=== PATIENT | female | born 1990 | race Caucasian/White ===

== ENCOUNTER → 2023-08-31 12:02 | Outpatient (REF) | payer OTHER, SELFPAY | LOC: WOUND 12:02 | PROVIDERS: ATTENDING PHYSICIAN Surgery Plastic and Reconstructive Surgery; REFERRING PHYSICIAN Nurse Practitioner Adult Health | DX: L02.213 Cutaneous abscess of chest wall (principal); N61.1 Abscess of the breast and nipple | CPT/HCPCS: 99203 ==

== ENCOUNTER 2024-04-25 13:37 | Emergency (ER) | payer BC, SELFPAY ==
[2024-04-25 14:03] VITALS: BP 145/89
[2024-04-25 14:17] LABS: % Basophils 0.4 % (0-2); % Eosinophils 1.1 % (0-6); % Immature Granulocytes 0.4 % (0-0.5); % Lymphocytes 26.6 % (20.5-51.1); % Monocytes 10.8 % (1.7-9.3); % Neutrophils 60.7 % (42.2-75.2); Absolute Eosinophils 0.1 10^3/uL (0-0.7); Absolute Monocytes 0.8 10^3/uL (0.1-0.6); Absolute Neutrophils 4.5 10^3/uL (1.4-6.5); Hematocrit 40.4 % (37.0-47.0); Hemoglobin 13.7 g/dL (12.0-16.0); Mean Corp Hgb Conc. 33.9 g/dL (33.0-37.0); Mean Corpuscular Hgb 31.2 pg (27.0-31.0); Mean Platelet Volume 8.8 fL (7.4-10.4); Nucleated Red Blood Cells % 0 %; Platelet Count 293 10^3/uL (130-400); Red Blood Cell Count 4.39 10^6/uL (4.20-5.40); Red Cell Dist. Width 14.2 % (11.5-14.5); White Blood Cell Count 7.4 10^3/uL (4.8-10.8)
[2024-04-25 14:36] LABS: HCG, Serum Qualitative Screen Negative
[2024-04-25 14:40] LABS: ALT (SGPT) 91 U/L (0-35); AST (SGOT) 63 U/L (14-36); Albumin 4.2 g/dl (3.5-5.0); Alkaline Phosphatase 119 U/L (38-126); Blood Urea Nitrogen 14 mg/dl (7-17); Calcium 9.6 mg/dl (8.4-10.2); Carbon Dioxide 28 mmol/L (22-30); Chloride 106 mmol/L (98-107); Glucose 102 mg/dl (70-99); Potassium 4.4 mmol/L (3.5-5.1); Sodium 137 mmol/L (135-145); Total Bilirubin 0.7 mg/dl (0.2-1.3); Total Protein 7.3 g/dl (6.3-8.2); eGFR > 60.00
[2024-04-25] MEDS: XANAX 0.25 MG PO (16:48)
--- NOTE | 2024-04-25 17:26 | ED.GENMED ---
History of Present Illness
General
Chief Complaint: Breast Problem
Time Seen by Provider: 04/25/24 16:31
History of Present Illness
History of Present Illness:
Patient is a 34-year-old woman with prior breast infection presenting to the emergency department with concerns for an infection. Patient states that in August she was admitted here for breast infection that spread to the sternum. Per chart
review she did have a incision and drainage by breast surgery team and was on IV antibiotics. She states that it was healing well up until a few days ago. She had worsening drainage. She has some chills. She also had some blood and purulent
drainage. Her entire left breast is sore. She does not feel any crepitus. No nausea or vomiting. No diarrhea. This does seem similar to the prior infection.
Past History
Past History
ED Past Medical History: Asthma and Other (Hypoglycemia, ovarian cysts, endometriosis previous laparotomy, Sciatic pain, Migraines when she was in [employer].); Negative HTN, Hypercholesterolemia or NIDDM
ED Past Surgical History: Gynecological (Ovarian cyst)
Social History
Tobacco: Former smoker
Alcohol: None
Personal: Single
Living: with family
Employment: Employed
Family History
Family History: Negative Diabetes, Hypertension or CAD
Phy Exam
Physical Exam
Physical Exam:
GENERAL: in no acute distress
HEENT: normocephalic, extraocular movements intact, moist oral mucosa
NECK: normal inspection
Chest: Chaperoned by BALJEET Ohara, left breast tender diffusely, small area of open ulceration underneath areola where a prior scar was that does have some purulent drainage. No crepitus.
RESPIRATORY: no respiratory distress, clear to auscultation bilaterally
CARDIOVASCULAR: regular rate and rhythm
ABDOMEN/: soft, non-distended, non-tender to palpation, no rebound or guarding
EXTREMITIES: non-tender, no edema/swelling
NEUROLOGIC: awake and alert, moves all extremities
SKIN: warm
Course
Orders/Labs/Results
Orders:
Orders
04/25/24 14:06
Test Result ONCE
04/25/24 14:11
Complete Blood Count/With Diff Urgent
Comprehensive Metabolic Panel Urgent
HCG, Serum Qualitative Screen Urgent
04/25/24 16:42
CT Chest With Iv Contrast Urgent
Comment:
Reason For Exam: left breast infection
Alprazolam [Xanax] 0.25 mg PO NOW STA
04/25/24 19:26
HydrOXYZINE [Atarax] 25 mg PO NOW STA
Ketorolac [Toradol] 15 mg IV NOW STA
Abnormal Lab Results
04/25/24
14:11
MCH 31.2 H pg
(27.0-31.0)
Absolute Monos (auto) 0.8 H 10^3/uL
(0.1-0.6)
Monocytes % 10.8 H %
(1.7-9.3)
Glucose 102 H mg/dl
(70-99)
AST 63 H U/L
(14-36)
ALT 91 H U/L
(0-35)
04/25/24 14:11
04/25/24 14:11
Vital Signs
Initial and Last Documented VS:
Initial Vital Signs
Temp Pulse Resp BP Pulse Ox
98.8 F 87 118 145/89 98
04/25/24 14:03 04/25/24 14:03 04/25/24 14:03 04/25/24 14:03 04/25/24 14:03
Last Documented Vital Signs
Temp Pulse Resp BP Pulse Ox
98.8 F 87 118 145/89 98
04/25/24 14:03 04/25/24 14:03 04/25/24 14:03 04/25/24 14:03 04/25/24 14:03
MDM/Problems Addressed
Differential Diagnosis Includes:
Patient is a 34-year-old woman presenting to the emergency department concern for breast infection. Vitals here are unremarkable and exam does show a tender swollen erythematous left breast with ulcerative lesion that is draining. Concern for
cellulitis versus deeper abscess. Less likely to be necrotizing soft tissue infection will check blood work and obtain CT scan.
*Critical Care Note
Total Time (30-74mins, 75-104mins- exclusive of procedures): Not Applicable
Update Note
Update Note:
Blood work notable for normal white count. CT scan without signs of deeper infection. Given given the erythema the drainage and the tenderness we will start patient on antibiotics. She does state that she started Augmentin for her PCP today.
Will add clindamycin for MRSA coverage. She states that she was allergic to doxycycline and Bactrim. Patient is aware to lindsay the edges of the infection as if it spreading to come back to the emergency department. Strict return precautions given.
Patient stable for discharge.
ED Attending Note
-
Portions of this chart may have been created with voice recognition software.� Occasional wrong word or��sound alike� substitutions may have occurred due to the inherent limitations of voice recognition software.
Discharge Plan
Departure
Patient Disposition: Home (Routine Discharge)
Date of Disposition: 04/25/24
Time of Disposition: 19:44
Patient with high blood pressure during this ER visit?: No
Discharge Problem:
Cellulitis of chest wall
Instructions: Cellulitis (Skin Infection), Adult (DC)
Prescriptions:
New
clindamycin HCl 150 mg capsule
450 mg PO TID 7 Days Qty: 63 0RF
No Action
famotidine 40 mg Tablet
40 mg PO DAILY
omeprazole 40 mg Capsule,Delayed Release(Dr/Ec)
40 mg PO DAILY
alprazolam 0.25 mg Tablet
0.25 mg PO DAILYPRN PRN (Reason: anxiety)
Patient Comments:
04/25/24: last filled 03/30/24 for 30 tablets over 30 days
amoxicillin-pot clavulanate 875-125 mg tablet
1 tab PO Q12H 7 Days Qty: 14 0RF
Patient Comments:
04/25/24: started 04/25/24, to take 20 tablets over 10 days.
naproxen sodium [Aleve] 220 mg Tablet
440 mg PO BIDPRN PRN (Reason: mild pain)
trazodone 50 mg tablet
50 mg PO HSPRN PRN (Reason: sleep)
Referrals:
Aneesh Koch CRNP [Family Provider] -
Interventions
Interventions:
ED-Skin Assessment Last Done: 04/25/24 17:20
Discharge Date and Time
Print Language: URDU
[2024-04-25] MEDS: ATARAX 25 MG PO (19:32)
[2024-04-25] MEDS: TORADOL 15 MG IV (19:32)
[2024-04-25 19:59] VITALS: BP 138/85
== END 2024-04-25 20:00 | disposition home or self-care (01) ==
LOC: EMR 13:37
PROVIDERS: Emergency Medicine; EMERGENCY PHYSICIAN Student in an Organized Health Care Education/Training Program; FAMILY PHYSICIAN Nurse Practitioner Adult Health
DX: L03.313 Cellulitis of chest wall (principal); Z87.891 Personal history of nicotine dependence
CPT/HCPCS: 99285; 96374; 71260; 80053; 84703; 85025; Q9967

== ENCOUNTER 2025-03-26 21:12 | Inpatient (IN) | payer BC, SELFPAY ==
[2025-03-26 15:55] VITALS: BP 148/105
[2025-03-26 16:12] LABS: Hematocrit 42.9 % (37.0-47.0); Hemoglobin 14.1 g/dL (12.0-16.0); Mean Corp Hgb Conc. 32.9 g/dL (33.0-37.0); Mean Corpuscular Volume 93.9 fL (81.0-99.0); Nucleated Red Blood Cells % 0 %; Platelet Count 326 10^3/uL (130-400); Red Cell Dist. Width 13.9 % (11.5-14.5)
[2025-03-26 16:39] LABS: HCG, Serum Qualitative Screen Negative
[2025-03-26 16:41] LABS: ALT (SGPT) 81 U/L (0-35); AST (SGOT) 48 U/L (14-36); Albumin 4.3 g/dl (3.5-5.0); Alkaline Phosphatase 116 U/L (38-126); Blood Urea Nitrogen 9 mg/dl (7-17); Calcium 9.3 mg/dl (8.4-10.2); Carbon Dioxide 22 mmol/L (22-30); Chloride 109 mmol/L (98-107); Glucose 104 mg/dl (70-99); Potassium 3.9 mmol/L (3.5-5.1); Sodium 139 mmol/L (135-145); Total Protein 7.7 g/dl (6.3-8.2); eGFR > 60.00
[2025-03-26 18:14] VITALS: BP 142/95
[2025-03-26] MEDS: ATIVAN 0.5 MG PO (18:55)
[2025-03-26] MEDS: TORADOL 15 MG IV (18:57)
[2025-03-26 19:03] VITALS: BMI 51.2
--- NOTE | 2025-03-26 19:04 | ED.GENMED ---
History of Present Illness
General
Chief Complaint: Breast Problem
Source: patient
Exam Limitations: none
Time Seen by Provider: 03/26/25 18:33
Nursing documentation reviewed up to this point in time: agreed with
History of Present Illness
History of Present Illness:
34 yo female with hx of GERD, anxiety breast I&D, sternum I&D, reports the presence of cysts medial lower right breast which she first noticed on 2 days ago. Later that day noted 'cyst' on same breast, right side. The medial cyst has started
draining clear fluid, the right side breast cyst has become more painful, open, draining with redness surrounding. The patient experienced fever past two days, fluctuated between 99�F to 101�F. She reported feeling light-headed, 'nauseous,' and
described the wound as feeling 'hot.' No vomiting.
Past History
Past History
ED Past Medical History: Asthma, Other (Hypoglycemia, ovarian cysts, endometriosis previous laparotomy, Sciatic pain, Migraines when she was in [employer].) and Other (Hydradrenitis suppurtiva bilateral breasts); Negative HTN, Hypercholesterolemia
or NIDDM
ED Past Surgical History: Gynecological (Ovarian cyst)
Social History
Tobacco: Former smoker
Alcohol: None
Personal: Single
Living: with family
Employment: Employed
Family History
Family History: Negative Diabetes, Hypertension or CAD
Review of Systems
Review of Systems
Allergies reviewed?: Yes
All Other Systems: ROS reviewed and negative except as documented in HPI and ROS
Constitutional: Reports fever
ABD/GI: Denies nausea
Skin: Reports other (wound, pain, redness right breast)
Phy Exam
Physical Exam
Physical Exam:
GENERAL: No acute distress. A&Ox3.
CONSTITUTIONAL: Afebrile.
EYES: clear, conjunctivae normal
ENMT: moist mucus membranes, Pharynx nl
RESPIRATORY: Regular respirations, nonlabored, lungs clear.
CARDIOVASCULAR: Regular rate and rhythm, no murmurs, no rubs.
GI: Soft, nontender, normal BS
MUSCULOSKELETAL: Moves with ease. Well perfused.
SKIN: Warm, dry, pink. Hydradrenitis supuritiva both breasts, medial aspect R lower breast cyst has started draining clear fluid, the right lateral breast cyst has become more painful, open, about dime sized open wound draining with surrounding
cellulitis.
PSYCH: Normal mood and affect. Well kept, interactive and appropriate
NEUROLOGIC: Awake, alert and oriented. No focal neurological deficits
Course
Orders/Labs/Results
Orders:
Orders
03/26/25 Breakfast
Regular
At Your Request: Full Participation
Does patient need a safe tray?: No
03/26/25 15:57
Test Result ONCE
03/26/25 16:06
Complete Blood Count/With Diff Urgent
Comprehensive Metabolic Panel Urgent
HCG, Serum Qualitative Screen Urgent
03/26/25 18:50
Ketorolac [Toradol] 15 mg IV NOW STA
Lorazepam [Ativan] 0.5 mg PO NOW STA
03/26/25 19:03
Piperacillin/Tazo 3.375 Gram [Zosyn] 3.375 gram in 50 ml IV NOW
03/26/25 19:10
Wound Culture [Wound/Abscess/Other Culture] Urgent
SHANNA Source: Abscess
Specimen Description:
Date Specimen was Collected: 03/26/25
Time Specimen was Collected: 19:09
Comment: R breast
03/26/25 19:11
Blood Culture Q30M
SHANNA Source: Blood/Venous
Specimen Description:
03/26/25 19:15
0.9% Sodium Chloride 1000 ml [Nss] 1,000 ml IV 125 mls/hr
03/26/25 19:29
Blood Culture Q30M
SHANNA Source: Blood/Venous
Specimen Description:
03/26/25 19:39
Oxycodone/Acetaminophen [Percocet 5/325] 1 tablet PO NOW STA
03/26/25 20:04
Admit/Transfer Patient As Directed
Co-Sign Provider:
Level of Care: Inpatient admission
Assign to:: Medical/Surgical
Physician / Group: magda
Diagnosis: cellulitis
Reason for Hospitalization: cellulitis
Expected length of stay greater than two midnights?: Yes
ELOS- Estimated Length of Stay in days: 3
I certify the patient meets the requirements for IP care: Yes
PRN Pain Medication Management As Directed
May give lesser potent ordered pain med per pt: Yes
preference::
Protocol:: Medication orders for pain may be administered in a
manner that supports deferring to patient preference
when the pt is:
- Requesting an ordered lesser potent pain medication.
Least to most potent pain medications are defined
as: acetaminophen < NSAID < tramadol < opioids
(morphine, oxycodone, hydromorphone).
- Requesting a lesser dose of the same medication IF
ORDERED.
- Requesting a less intrusive route of administration
if both routes are prescribed by the provider (PO <
IV).
03/26/25 20:05
Code Status As Directed
Resuscitation Status: Full Code
03/26/25 21:21
Alprazolam [Xanax] 0.25 mg PO DAILYPRN PRN anxiety
HYDROmorphone [Dilaudid] 0.5 mg IV Q4HPRN PRN
03/26/25 21:21
INFECTIOUS DISEASE CONSULT Routine
Consulting Provider: Brenda Puri
Was physician already notified: Yes
MRSA Screen Routine
SHANNA Source: Nose
Specimen Description:
Activity As Directed
Activity Level: Out of Bed-Early Mobility
Intake/ Output As Directed
Frequency: Per unit guidelines
Vital Signs As Directed
Frequency: Per unit guidelines
DX Deep Vein Thrombosis Video Routine
03/26/25 22:00
Famotidine [Pepcid] 40 mg PO HS
03/27/25 02:00
Piperacillin/Tazo 3.375 Gram [Zosyn] 3.375 gram in 50 ml IV Q6H
03/27/25 05:20
Complete Blood Count/No Diff IN AM
Comprehensive Metabolic Panel IN AM
03/27/25 08:00
Pantoprazole [Protonix] 40 mg PO DAILY
03/27/25 18:00
Enoxaparin Sodium [Lovenox] 40 mg SC QPM
03/28/25 06:00
Complete Blood Count/No Diff IN AM
Comprehensive Metabolic Panel IN AM
03/29/25 06:00
Complete Blood Count/No Diff IN AM
Comprehensive Metabolic Panel IN AM
03/30/25 06:00
Complete Blood Count/No Diff IN AM
Comprehensive Metabolic Panel IN AM
03/31/25 06:00
Complete Blood Count/No Diff IN AM
Comprehensive Metabolic Panel IN AM
Abnormal Lab Results
03/26/25
16:06
WBC 12.3 H 10^3/uL
(4.8-10.8)
MCHC 32.9 L g/dL
(33.0-37.0)
Absolute Neuts (auto) 8.6 H 10^3/uL
(1.4-6.5)
Absolute Monos (auto) 1.1 H 10^3/uL
(0.1-0.6)
Lymphocytes % 18.7 L %
(20.5-51.1)
Chloride 109 H mmol/L
(98-107)
Glucose 104 H mg/dl
(70-99)
Total Bilirubin 1.6 H mg/dl
(0.2-1.3)
AST 48 H U/L
(14-36)
ALT 81 H U/L
(0-35)
03/26/25 16:06
03/26/25 16:06
Vital Signs
Initial and Last Documented VS:
Initial Vital Signs
Temp Pulse Resp BP Pulse Ox
98.4 F 110 16 148/105 100
03/26/25 15:55 03/26/25 15:55 03/26/25 15:55 03/26/25 15:55 03/26/25 15:55
Last Documented Vital Signs
Temp Pulse Resp BP Pulse Ox
98.1 F 80 18 124/69 96
03/27/25 17:06 03/27/25 17:06 03/27/25 17:06 03/27/25 17:06 03/27/25 17:42
MDM/Problems Addressed
Differential Diagnosis Includes:
abscess breast, cellulitis
MDM/Problems Addressed:
34 yo female with hx of GERD, anxiety breast I&D, sternum I&D, reports the presence of cysts medial lower right breast which she first noticed on 2 days ago. Later that day noted 'cyst' on same breast, right side. The medial cyst has started
draining clear fluid, the right side breast cyst has become more painful, open, draining with redness surrounding. The patient experienced fever past two days, fluctuated between 99�F to 101�F. She reported feeling light-headed, 'nauseous,' and
described the wound as feeling 'hot.' No vomiting.
CBC mild leukocytosis
CMP mild elevation in liver enzymes
Neg HCG
7:40 p.m
Plan: Admit: Cellulitis and wound R breast, IV antibiotics started. Wound culture pending.
Hospitalist notified of admission
*Pulse Oximetry
SaO2: 100
Oxygen Mode of Delivery: Room air
Patient hypoxic: not evaluated
*Critical Care Note
Total Time (30-74mins, 75-104mins- exclusive of procedures): Not Applicable
ED Attending Note
-
Portions of this chart may have been created with voice recognition software.� Occasional wrong word or��sound alike� substitutions may have occurred due to the inherent limitations of voice recognition software.
Discharge Plan
Departure
Patient Disposition: Admit
Date of Disposition: 03/26/25
Time of Disposition: 19:39
Admit to: Med/Surg
Presentation/result/management discussed w/ accepting MD/DO: Hospitalist
Condition: Fair
Discharge Problem:
Cellulitis of right breast
Interventions
Interventions:
*Risk Screen - Suicide Last Done: 03/26/25 15:57
*General Assessment Last Done: 03/26/25 19:05
*Neglect/Abuse Screening Last Done: 03/26/25 15:57
*ED- Fall Risk Assessment Last Done: 03/26/25 19:05
*ED COVID-19 Vaccine History Last Done: 03/26/25 19:05
*Nursing Disposition Last Done: 03/27/25 16:50
ED-Skin Assessment Last Done: 03/26/25 19:05
Discharge Date and Time
Discharge Date/Time: 03/27/25 16:50
[2025-03-26] MEDS: ZOSYN 50 IV (19:30)
--- NOTE | 2025-03-26 19:44 | HPS.HSE ---
Family Physician
-
Family Physician:
Chief Complaint
-
right breast wound
History of Present Illness
34 yo female with hx of GERD, anxiety breast I&D, sternum I&D, reports the presence of cysts medial lower right breast which she first noticed on 2 days ago. Later that day noted 'cyst' on same breast, right side. The medial cyst has started
draining clear fluid, and it is an open wound.the right side breast cyst has become more painful, draining with redness surrounding. the wound has foul smelling. she had temp since Tuesday night. she took Aleve today morning with no fever since then.
denied runny nose,congestion and cough. denied chest pain, sob. denied abdominal pain,n,v,d. denied dysuria or hematuria.
Patient received Zosyn in ER. Wound culture and blood culture sent from ER. Admitted for further management
Medical History
Past Medical History
Past Medical History: Reports Other
Additional Past Medical History:
Liver fibrosis
Myalgia paresthetica
Chest wall cellulitis
Fatty liver
GERD
Headache
Endometriosis
Hiatal hernia
Past Surgical History: Reports Other
Additional Past Surgical History:
Foot surgery
Endometriosis
Social History
Tobacco: Smoker (Occasional)
Alcohol: Occasional
Drug: None
Family History
Family History: Not pertinent
Allergies / Home Medications
Allergies reflects when Allergies were last updated in [facility].
Home Medications with original date entered in [facility]
Allergy/Medication List:
Allergies
Allergy/AdvReac Type Severity Reaction Status Date / Time
sulfamethoxazole (From Allergy Rash Verified 04/25/24 14:05
Bactrim)
trimethoprim (From Bactrim) Allergy Rash Verified 04/25/24 14:05
Home Medications
alprazolam 0.25 mg tablet 0.25 mg PO DAILYPRN PRN anxiety 08/13/23
famotidine 40 mg tablet 40 mg PO HS GERD 08/13/23
omeprazole 40 mg capsule,delayed release 40 mg PO DAILY GERD 08/13/23
naproxen sodium 220 mg tablet (Aleve) 440 mg PO BIDPRN PRN mild pain 04/25/24
Review of Systems
-
Constitutional: Reports No Symptoms
EENT: Reports No Symptoms
Respiratory: Reports No Symptoms
Cardiac: Reports No Symptoms
Abdomen/GI: Reports No Symptoms
: Reports No Symptoms
Musculoskeletal: Reports No Symptoms
Skin: Reports Other (righ breast wound)
Neurological: Reports No Symptoms
Endocrine: Reports No Symptoms
Hematologic/Lymphatic: Reports No Symptoms
Psych: Reports No Symptoms
Physical Exam
Vital Signs
Vital Signs
Temp Pulse Resp BP Pulse Ox
97.4 F 93 20 142/95 100
03/26/25 18:14 03/26/25 18:14 03/26/25 18:14 03/26/25 18:14 03/26/25 19:08
Physical Exam
General: Well Developed, Well Nourished and No Apparent Distress
HEENT: NormoCephalic, Moist mucous membranes and Atraumatic
Respiratory: Clear
Cardiac: S1/S2 and Regular Rhythm; No Murmur or Rub
GI: Soft, Non Tender, Non Distended and Normal Bowel Sounds; No Organomegaly
Rectal: Deferred by Provider
Musculoskeletal: No Clubbing, No Cyanosis and No Edema
Skin: Other (right breast draining wound)
Neuro: AO x 3 and Nonfocal/grossly intact
Psych: Calm
Laboratory Results
-
03/26/25 16:06
03/26/25 16:06
Laboratory Results
Total Bilirubin 1.6 mg/dl (0.2-1.3) H 03/26/25 16:06
AST 48 U/L (14-36) H 03/26/25 16:06
ALT 81 U/L (0-35) H 03/26/25 16:06
Alkaline Phosphatase 116 U/L (38-126) 03/26/25 16:06
Data Reviewed
-
Lab Data: Labs Reviewed by me
Impression/Plan
-
# Right breast abscess/cellulitis
- WBCs 12.3
- IV Zosyn,vanco continued
- Tylenol p.o. for fever or pain
- Wound culture and blood culture sent from ER
-ID consult
-plastic surgery consult
-hxt of staph epidermidis tissue culture
#Chronic transaminitis/fatty liver
- AST 48, ALT 81
# Anxiety
- Alprazolam continued for anxiety
# GERD
- Famotidine continued
# DVT prophylaxis
- Lovenox
# CODE STATUS full code
-
[2025-03-26] MEDS: PERCOCET 5/325 1 TABLET PO (19:49)
[2025-03-26] MEDS: NSS 1000 IV (20:09)
--- NOTE | 2025-03-26 20:29 | W.PN.UPDATE ---
Update Note
Progress Note Update
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 I agree with findings on history and physical. I agree with the assessment and plan unless stated otherwise.
This is a 34-year-old with past medical history of GERD was also had a prior history of cellulitis of the breast presents with 2 days of painful swelling and drainage around the right breast. Reporting that she had a temp of 101 on Tuesday. She
also had a temp on Tuesday and did take Aleve before coming to the emergency department today.
In the Emergency Department she had a temp of 97.4, blood pressure was 140/95 with a pulse rate of 93 satting 100% on room air. She is awake and 5.3 CBC otherwise unremarkable. Electrolyte BUN/creatinine were normal.
Examination revealed a painful erythema and drainage from wound in the lateral right breast. It is foul smelling.
Patient has past medical history of breast cellulitis/abscess with growth of staph epidermides on I&D culture
Assessment and plan
Right breast cellulitis with abscess formation
- Admit to [facility]
- Blood cultures sent
- Wound culture sent
- Given degree of wound and purulent drainage, suspect patient may need I&D
- Plastic surgery consult
- Given systemic findings of infection, IV Vanco and IV Zosyn for now
- MRSA swab
- ID consultation
DVT prophylaxis - lovenox sq
Code status - Full code
[2025-03-26] MEDS: XANAX 0.25 MG PO (22:00)
[2025-03-26] MEDS: DILAUDID 0.5 MG IV (22:01)
--- NOTE | 2025-03-26 22:04 | PHA.VAN.IN ---
Assessment
- Assessment
Renal Function: Appears similar to baseline
Concomitant Antimicrobials: ZOSYN
- Previous Dosing Experience
Previous Regimen: 1500MG IV Q12H
Date of Regimen: 08/17/23
Provided Trough of: UNKNOWN
Provided AUC of: 473
Patient's SCR is: Similar to previous dosing experience (08/17/23 SCR = 0.6)
Patient's weight is: Elevated compared to previous dosing experience (08/17/23 WT = 140.7 KG)
AUC Dosing Plan
- Dosing Variables
Dosing Weight (kg): 146
Dosing CrCl (ml/min): 100
Vd coefficient (L/kg): 0.5
- Empiric Dosing
Initial / Loading Dose: 2GM
Maintenance Regimen: 1500MG IV Q12H
Estimated AUC (mcg*h/mL): 501
Estimated Peak (mcg*h/mL): 31.6
Estimated Trough (mcg/ml): 12.6
Estimated Half Life (H): 7.9
Pharmacokinetics Vancomycin I
- -
Patient Age: 34
Patient Sex: Female
Vancomycin Day #: 1
Indication: Skin And Soft Tissue ([R] BREAST ABSCESS/CELLULITIS)
Requesting Provider: MIKI
Pertinent Antimicrobial Allergies:
Allergies
sulfamethoxazole (From Bactrim) Allergy (Verified 04/25/24 14:05)
Rash
trimethoprim (From Bactrim) Allergy (Verified 04/25/24 14:05)
Rash
Height / Weight:
Height 5 ft 6.5 in
Actual Weight 146 kg
- Vital Signs / Lab Results
Temp Pulse Resp BP Pulse Ox
97.4 F 93 20 142/95 100
03/26/25 18:14 03/26/25 18:14 03/26/25 18:14 03/26/25 18:14 03/26/25 19:08
Lab Results - Hematology
03/26/25
16:06
WBC 12.3 H
Lab Results - Chemistry
03/26/25
16:06
BUN 9
Creatinine 0.6
Albumin 4.3
[2025-03-26] MEDS: VANCOCIN 540 MG IV (22:16)
[2025-03-26] MEDS: FLUSH (NSS) 1 FLUSH IV (22:21)
[2025-03-26] MEDS: PEPCID 40 MG PO (22:26)
[2025-03-26 23:10] VITALS: BP 121/81
[2025-03-27] VITALS: BP 126/71
[2025-03-27] MEDS: ZOSYN 50 IV ×2 (02:08→07:26)
[2025-03-27] MEDS: DILAUDID 0.5 MG IV ×5 (02:08→20:47)
[2025-03-27 05:41] LABS: Hematocrit 37.7 % (37.0-47.0); Hemoglobin 12.6 g/dL (12.0-16.0); Mean Corp Hgb Conc. 33.4 g/dL (33.0-37.0); Mean Corpuscular Volume 93.1 fL (81.0-99.0); Platelet Count 285 10^3/uL (130-400); Red Cell Dist. Width 13.9 % (11.5-14.5)
[2025-03-27 06:01] LABS: ALT (SGPT) 80 U/L (0-35); AST (SGOT) 44 U/L (14-36); Albumin 3.6 g/dl (3.5-5.0); Alkaline Phosphatase 85 U/L (38-126); Blood Urea Nitrogen 11 mg/dl (7-17); Calcium 8.7 mg/dl (8.4-10.2); Carbon Dioxide 22 mmol/L (22-30); Chloride 110 mmol/L (98-107); Estimated Creatinine Clearance > 125 ml/min; Glucose 93 mg/dl (70-99); Potassium 4.1 mmol/L (3.5-5.1); Sodium 136 mmol/L (135-145); Total Protein 6.5 g/dl (6.3-8.2); eGFR > 60.00
[2025-03-27] MEDS: VANCOCIN 530 MG IV (06:20)
[2025-03-27] MEDS: PROTONIX 40 MG PO (07:26)
[2025-03-27 07:36] VITALS: BP 129/72
[2025-03-27] MEDS: XANAX 0.25 MG PO ×3 (07:36→23:30)
--- NOTE | 2025-03-27 09:55 | PHA.VAN.FU ---
Addendum entered and electronically signed by Bree Nathan Brandin 03/28/25 14:45:
Consult performed in conjunction with pharmacy sales representative. Agree with assessment & plan below.
Original Note:
Vancomycin Assessment / Plan
- Assessment
Renal Function: Stable
WBC's are: Trending Down
In the past 24 hrs, patient has been: Afebrile
Concomitant Antimicrobials: piperacillin/tazobactam
- Dosing Plan
Adjust Regimen to: 1000mg q8h
New Regimen Predicts: AUC (401), Peak (23.7), Trough (11.1)
- Monitoring Plan
Trough Level: pre-steady state 03/28 530
- Follow Up
Pharmacy will continue to follow.
Vancomycin Follow UP
- -
Patient Age: 34
Patient Sex: Female
Vancomycin Day #: 2
Indication: Skin And Soft Tissue
Requesting Provider: MIKI
Pertinent Antimicrobial Allergies:
sulfamethoxazole/trimethoprim (From Bactrim) - Rash
Height / Weight:
Height 5 ft 6.5 in
Actual Weight 146 kg
Pertinent Past Medical History: BMI ~51
- Vital Signs / Lab Results
Temp Pulse Resp BP Pulse Ox
97.7 F 79 17 129/72 100
03/27/25 07:36 03/27/25 07:36 03/27/25 07:36 03/27/25 07:36 03/27/25 07:36
Lab Results - Hematology
03/26/25 03/27/25
16:06 05:20
WBC 12.3 H 10.1
Lab Results - Chemistry
03/26/25 03/27/25
16:06 05:20
BUN 9 11
Creatinine 0.6 0.7
Estimated Creat Clear > 125
Albumin 4.3 3.6
--- NOTE | 2025-03-27 10:15 | W.PN.HOSP.TC ---
Today's Communication/Plan
-
see plan
Assessment / Plan
Assessment / Plan
Patient seen and examined with BALJEET Maher present at bedside for the entirety of the interview and physical exam
Gen: NAD, AAOx3.
Eyes: EOMI, PERRLA, no scleral icterus.
Neck: supple.
CV: RRR, +S1/S2, no m/r/g.
Resp: CTAB, no rales, wheezes, or rhonchi.
Abd: +BS, soft, NT, ND
Skin: note, breast exam deferred as pt will be seen by breast surgery. Otherwise, no rashes.
Neuro: CN 2-12 intact, non-focal.
Psych: Normal mood and affect.
CT chest: No significant acute abnormality identified in the chest, as described above. Interval resolution of previously seen midline anterior chest wall subcutaneous edema/emphysema and inflammatory change. No overt CT evidence for soft tissue
inflammation or fluid collections throughout the subcutaneous and partially visualized breast soft tissues.
Right breast abscess/cellulitis:
-leukocytosis has resolved
-cont IV Vanco/Zosyn
-follow WCx
-c/s ID and breast surgery (discussed with Dr. Rios)
-check R breast U/S
Other problems:
Chronic transaminitis/fatty liver
Anxiety: cont Xanax
Morbid obesity due to excess calories, BMI 51.2
GERD: cont Pepcid
FULL/Lovenox
Anticipated Discharge: 24 - 48 hours
Subjective/Interval History
-
Date of Service: March 27, 2025
Objective Data
-
Labs:
Laboratory Results
03/27/25
05:20
WBC 10.1
Hgb 12.6
Hct 37.7
Plt Count 285
Sodium 136
Potassium 4.1
Chloride 110 H
Carbon Dioxide 22
BUN 11
Creatinine 0.7
Glucose 93
Calcium 8.7
Total Bilirubin 1.4 H
AST 44 H
ALT 80 H
Alkaline Phosphatase 85
Vital Signs:
Vital Signs
Temp Pulse Resp BP Pulse Ox
97.7 F 79 17 129/72 100
03/27/25 07:36 03/27/25 07:36 03/27/25 07:36 03/27/25 07:36 03/27/25 07:36
I&O
03/26/25 03/27/25 03/28/25
06:59 06:59 06:59
Intake Total 780 / 780
Balance 780 / 780
--- NOTE | 2025-03-27 10:22 | CM ---
Patient seen at bedside in ED. Patient stated that she lives alone in a one story home. Patient has no DME or past need for VN services. Patient PCP is Dr. Shearer and she uses the [facility] in [place] on . Patient stated that she was planning for
discharge home with no needs. CM will continue to follow for discharge planning needs.
Plan; home with no needs; watch for VN needs.
[2025-03-27] MEDS: ROXICODONE 5 MG PO ×3 (11:45→22:20)
--- NOTE | 2025-03-27 13:28 | CON.ID ---
Consultation
-
Date/Time Consultation Requested: 03/26/2025 2121
Date/Time Consultation Performed: 03/27/2025 1230
Requesting Provider: Dr. Linn
Performing Provider: Dr. Pierre
Reason for Consultation: Right breast infection
Chief Complaint / Past History
History of Present Illness
Dania Garcia is a 34-year-old female being evaluated at the request of Dr. Linn in regards to a right breast infection. History is obtained from chart review, along with patient interview.
The patient reports that she was in her usual state of health until approximately 4 days ago when she woke up and reported she did not feel well. She noted that she had a temperature to 101.2 degrees that day and her right breast felt 'achy'. She
also noted a small 'lump' on the underside of the breast, and a second lump on the lateral aspect of the breast. The following day, she continued to feel ill and noted that the lumps previously noted were now slightly bigger. Yesterday she noted
that the lateral wound had now turned 'black' and her breast tissue felt like it was 'on fire'. The inferior breast lump remained stable, though. She saw her PCP who noted that the lateral breast wound was now weeping and she presented to the
emergency room for further evaluation. She was started on empiric antibiotics.
At the present time she notes that she still is having significant pain. She additionally feels occasionally lightheaded, but denies any current fevers.
She reports in 2022 she had a similar episode of infection on the left breast, along with a suprasternal cyst. The cyst required surgery.
Past History
Additional Past Medical History:
GERD
Anxiety
Obesity (BMI = 51)
Additional Past Surgical History:
Anterior chest surgery for cyst
Left breast surgery
Foot surgery
Allergy History:
sulfamethoxazole (From Bactrim) Allergy (Verified 04/25/24 14:05)
Rash
Medications Reviewed: Yes
Current Antibiotics:
Vancomycin
Zosyn
Social History
Tobacco: Smoker
Alcohol: Occasional
Drug: None
Living: With Family
Employment: Employed
Family History
Family History: Not Pertinent
Review of Systems
Vital Signs
Temp Pulse Resp BP Pulse Ox
97.7 F 79 17 129/72 100
03/27/25 07:36 03/27/25 07:36 03/27/25 07:36 03/27/25 07:36 03/27/25 07:36
Physical Exam
Physical Exam
Constitutional: No Acute Distress, Comfortable, Non-toxic and Obese
Eyes: No Conjunctival Hemorrhage and Sclera Anicteric
Oral: No Thrush and No Ulcers
Cardiovascular: Regular Rate and S1/S2; Negative S3/S4
Pulmonary: Clear; Negative Wheezes, Rales or Rhonchi
Gastrointestinal: Soft, Non Tender, Non Distended and Normal Bowel Sounds
Skin: Other (inferior b/l breasts with erythematous lesions, with associated tenderness. No vesicles. Right lateral breast superficial wound approximately 1.5 cm in diameter.)
Neurological: Awake and Alert
Psychological: Calm
.
Lab / Diagnostic Study Results
03/27/25 05:20
03/27/25 05:20
Abs Immat Gran (auto) 0.0 10^3/uL (0-0.05) 03/26/25 16:06
Absolute Neuts (auto) 8.6 10^3/uL (1.4-6.5) H 03/26/25 16:06
Absolute Lymphs (auto) 2.3 10^3/uL (1.2-3.4) 03/26/25 16:06
Absolute Monos (auto) 1.1 10^3/uL (0.1-0.6) H 03/26/25 16:06
Absolute Basos (auto) 0.1 10^3/uL (0-0.2) 03/26/25 16:06
Immature Gran % 0.3 % (0-0.5) 03/26/25 16:06
Neutrophils % 70.1 % (42.2-75.2) 03/26/25 16:06
Lymphocytes % 18.7 % (20.5-51.1) L 03/26/25 16:06
Monocytes % 9.2 % (1.7-9.3) 03/26/25 16:06
Eosinophils % 1.3 % (0-6) 03/26/25 16:06
Basophils % 0.4 % (0-2) 03/26/25 16:06
Microbiology Results
Micro:
03/26/25 19:10 Wound Culture - Pending
Abscess Gram Stain - Preliminary
03/27/25 05:20 MRSA Screen - Pending
Nose
03/26/25 19:11 Blood Culture - Pending
Blood/Venous
03/26/25 19:29 Blood Culture - Pending
Blood/Venous
Imaging:
03/27/2025 Ultrasound right breast: ultrasound of the right breast demonstrates marked skin thickening at the 9 o'clock position where an ulcer is seen. Fluid/ulcer in the dermal layer is identified. There is mild cellulitis just below the dermal
layer. No abscess collection noted.
Assessment / Plan
Right breast cellulitis with development of ulcer
- ?possible component of inflammatory process such as panniculitis?
Leukocytosis; improved
Transaminitis
GERD
Anxiety
Obesity (BMI = 51)
Recommendations:
Continue with empiric antibiotic therapy, although narrow to cefazolin.
Monitor white count and temperature curve.
Await further evaluation by Breast Surgery
[2025-03-27] MEDS: ANCEF 10 IV ×2 (13:50→21:05)
[2025-03-27 15:02] VITALS: BP 134/79
[2025-03-27 17:06] VITALS: BP 124/69; BMI 52.2
--- NOTE | 2025-03-27 17:17 | CON.GS ---
Consultation
-
Date/Time Consultation Requested: 03/27/25 1014H
Date/Time Consultation Performed: 03/27/25 1320H
Requesting Provider: Kaveh
Performing Provider: Blanca
Reason for Consultation: Right breast infection
Medical History
-
Chief Complaint: Right breast pain and erythema
History of Present Illness:
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 I last saw her in the early for left breast infection that resolved without surgical treatment. She reports that since Tuesday she did
not feel well overall and developed increased pain in her right breast. She saw her primary yesterday who sent her to the ED. She had a first menstrual period at age 13 and is nulliparous. Her menstrual cycles are usually regular but last month
she had an irregular cycle. She is a smoker.
Past Medical History
Past Medical History: Other (obesity)
Past Surgical History: None
Social History
Tobacco: Smoker
Family History
Family History: Reviewed & Not Pertinent
Allergies / Home Medications
Allergy/AdvReac Type Severity Reaction Status Date / Time
sulfamethoxazole (From Allergy Rash Verified 04/25/24 14:05
Bactrim)
trimethoprim (From Bactrim) Allergy Rash Verified 04/25/24 14:05
�Medication �Instructions �Recorded �Confirmed �Type
alprazolam 0.25 mg tablet 0.25 mg PO DAILYPRN PRN anxiety 08/13/23 03/26/25 History
famotidine 40 mg tablet 40 mg PO HS GERD 08/13/23 03/26/25 History
omeprazole 40 mg capsule,delayed 40 mg PO DAILY GERD 08/13/23 03/26/25 History
release
naproxen sodium 220 mg tablet 440 mg PO BIDPRN PRN mild pain 04/25/24 03/26/25 History
(Aleve)
Review of Systems
-
History Source: Patient
All other systems: Negative unless noted
Skin: Other (breast pain and discharge from skin)
A 10 point review of systems was completed, and was negative except as per HPI.
Physical Exam
Vital Signs
Temp Pulse Resp BP Pulse Ox
98.1 F 80 18 124/69 96
03/27/25 17:06 03/27/25 17:06 03/27/25 17:06 03/27/25 17:06 03/27/25 17:06
03/26/25 03/27/25 03/28/25
06:59 06:59 06:59
Actual Weight 146 kg 146.53 kg
Body Mass Index (BMI) 52.2
Lab Results
03/27/25 05:20
03/27/25 05:20
WBC 10.1 10^3/uL (4.8-10.8) 03/27/25 05:20
Hgb 12.6 g/dL (12.0-16.0) 03/27/25 05:20
Hct 37.7 % (37.0-47.0) 03/27/25 05:20
Plt Count 285 10^3/uL (130-400) 03/27/25 05:20
Abs Immat Gran (auto) 0.0 10^3/uL (0-0.05) 03/26/25 16:06
Neutrophils % 70.1 % (42.2-75.2) 03/26/25 16:06
Physical Exam
General: Well Developed and Other (obese)
HEENT: Normocephalic and Anicteric
Respiratory: Clear and Non Labored Respirations
Cardiac: S1/S2 and Regular Rhythm
Breast: Other (hidadrenitis suppurtiva bilateral breasts, right with ulcerated area, draining serosanguinous drainage)
Musculoskeletal: No Clubbing and No Cyanosis
Neuro: Awake and AO x 3
Data Reviewed
-
Radiology: Image Personally Visualized and interpreted, Report Reviewed by me, Discussed with Physician and Discussed with Patient
Ultrasound: Image Personally Visualized and interpreted, Report Reviewed by me, Discussed with Physician and Discussed with Patient
Labs: Labs Reviewed by me
Total Time Spent with Patient (in minutes): 20
Assessment / Plan
-
34-year-old female with a history of HIT adenitis suppurativa here now for exacerbation of an area under her right breast. This was painful and indurated and is now draining serous fluid. Diagnostic ultrasound shows no evidence of underlying
collection that would require drainage. Plan is to treat with antibiotics quickly transitioning to oral agents and pain medication. Local wound care advised. Patient should have a mammogram when she is pain-free. She was advised this is a
chronic problem exacerbated by smoking and metabolic issues. She would benefit from a discussion with a weight loss specialist and/or GLP 2 inhibitor use.
--- NOTE | 2025-03-27 17:33 | PTCARENOTE ---
Received pt from ER via stretcher, accompanied by ER staff. Pt AAO x3, NUNES well, ambulatory to bed. VSS. On room air- pulse ox 96%. Abd obese, soft, to be on regular diet. Pt DTV; stated she will void in BR. Pt with oozing area under
breasts/purulent drainage; bruised areas under breasts; open area under right breast. Sites cleansed, ABD pads applied to sites. Pt c/o 'pulsating' pain right breast; requesting additional pain med- 'something to tide me over'. Dr. Teresa
notified. Pt oriented to [facility]. Will continue to monitor.
[2025-03-27] MEDS: LOVENOX 40 MG SC (17:53)
[2025-03-27] MEDS: PEPCID 40 MG PO (20:47)
[2025-03-27 23:31] VITALS: BP 117/65
[2025-03-28] MEDS: DILAUDID 0.5 MG IV ×3 (01:08→13:47)
[2025-03-28] MEDS: XANAX 0.25 MG PO (03:53)
[2025-03-28] MEDS: ROXICODONE 5 MG PO (05:11)
[2025-03-28] MEDS: ANCEF 10 IV ×2 (05:11→13:40)
[2025-03-28 07:08] LABS: Hematocrit 37.1 % (37.0-47.0); Hemoglobin 12.2 g/dL (12.0-16.0); Mean Corp Hgb Conc. 32.9 g/dL (33.0-37.0); Mean Corpuscular Volume 96.1 fL (81.0-99.0); Platelet Count 264 10^3/uL (130-400); Red Cell Dist. Width 13.8 % (11.5-14.5)
[2025-03-28 07:35] VITALS: BP 124/76
[2025-03-28 07:38] LABS: ALT (SGPT) 79 U/L (0-35); AST (SGOT) 51 U/L (14-36); Albumin 3.4 g/dl (3.5-5.0); Alkaline Phosphatase 79 U/L (38-126); Blood Urea Nitrogen 11 mg/dl (7-17); Calcium 8.7 mg/dl (8.4-10.2); Carbon Dioxide 28 mmol/L (22-30); Chloride 109 mmol/L (98-107); Estimated Creatinine Clearance > 125 ml/min; Glucose 88 mg/dl (70-99); Potassium 4.3 mmol/L (3.5-5.1); Sodium 139 mmol/L (135-145); Total Protein 6.3 g/dl (6.3-8.2); eGFR > 60.00
[2025-03-28] MEDS: PROTONIX 40 MG PO (07:56)
--- NOTE | 2025-03-28 10:24 | W.PN.HOSP.TC ---
Addendum entered and electronically signed by Elijah Linn MD 03/28/25 13:48:
Total time spent on d/c = 31 min. This included today's physical exam, progress note, review of laboratory and diagnostic data, preparation of discharge documents and prescriptions, and discussions about the pt's hospital course and discharge plan
with the patient and other medical resident involved in the patient's care.
Addendum entered and electronically signed by Elijah Linn MD 03/28/25 12:42:
Sepsis, POA, due to right breast cellulitis
Original Note:
Today's Communication/Plan
-
see plan
Assessment / Plan
Assessment / Plan
Patient seen and examined with BALJEET Avalos present at bedside for the entirety of the interview and physical exam
Gen: NAD, AAOx3.
Eyes: EOMI, PERRLA, no scleral icterus.
Neck: supple.
CV: remains RRR, +S1/S2, no m/r/g.
Resp: CTAB anteriorly, no rales, wheezes, or rhonchi.
Abd: +BS, soft, NT, ND
Skin: note, breast exam deferred as pt followed by breast surgery and ID. Otherwise, no obvious rashes.
Neuro: CN 2-12 intact, non-focal.
Psych: Normal mood and affect.
03/26/25 19:10 Abscess Wound Culture - Preliminary
No growth
03/26/25 19:10 Abscess Gram Stain - Preliminary
03/27/25 05:20 Nose MRSA Screen - Final
No Methicillin Resistant Staphylococcus aureus isolated.
03/26/25 19:11 Blood/Venous Blood Culture - Preliminary
No Growth in 24 hours- Final report to follow
03/26/25 19:29 Blood/Venous Blood Culture - Preliminary
No Growth in 24 hours- Final report to follow
CT chest: No significant acute abnormality identified in the chest, as described above. Interval resolution of previously seen midline anterior chest wall subcutaneous edema/emphysema and inflammatory change. No overt CT evidence for soft tissue
inflammation or fluid collections throughout the subcutaneous and partially visualized breast soft tissues.
R breast U/S: There is no abscess collection. There is skin thickening and ulceration with mild cellulitis subdermal.
Right breast abscess/cellulitis:
-leukocytosis has resolved
-was on IV Vanco/Zosyn, now on Ancef as per ID
-Cx data above, NGTD
-ID and breast surgery following. As per Dr. Rios this is hidradenitis suppurativa.
-pain control
Other problems:
Chronic transaminitis/fatty liver
Anxiety: cont Xanax
Morbid obesity due to excess calories, BMI 51.2
GERD: cont Pepcid
FULL/Lovenox
Anticipated Discharge: Within 24 hours
Subjective/Interval History
-
Date of Service: March 28, 2025
No new complaints.
Objective Data
-
Labs:
Laboratory Results
03/28/25
06:29
WBC 7.1
Hgb 12.2
Hct 37.1
Plt Count 264
Sodium 139
Potassium 4.3
Chloride 109 H
Carbon Dioxide 28
BUN 11
Creatinine 0.9
Glucose 88
Calcium 8.7
Total Bilirubin 0.7
AST 51 H
ALT 79 H
Alkaline Phosphatase 79
Vital Signs:
Vital Signs
Temp Pulse Resp BP Pulse Ox
97.7 F 76 16 124/76 100
03/28/25 07:35 03/28/25 07:35 03/28/25 07:35 03/28/25 07:35 03/28/25 07:35
I&O
03/27/25 03/28/25 03/29/25
06:59 06:59 06:59
Intake Total 2049
Balance 2049
--- NOTE | 2025-03-28 12:03 | PN.CDI ---
CDI
- -
CDI:
Physician Documentation Request
Admit Date: 03/26/25 21:12
Dear Doctor Kaveh,
Please review the following and provide your response in the progress notes.
Clinical Indicators:
Pt admitted with Right Breast cellulitis
Documented in ED, ' The patient experienced fever past two days, fluctuated between 99�F to 101�F. She reported feeling light-headed, 'nauseous,' and described the wound as feeling 'hot.'
H&P,' Right breast abscess/cellulitisWBCs 12.3 IV Zosyn,vanco continued Tylenol p.o. for fever or pain...'
Update note 03/26, ' Given systemic findings of infection, IV Vanco and IV Zosyn for now....'
On Admission WBC 12.3, HR 110
Please clarify which of the following most accurately describes the status of the patient's infection:
Sepsis-POA
- Systemic manifestations of infection, with 2 or more SIRS criteria which include:
- Fever >100.9 degrees F or hypothermia < 96.8 degrees F
- Leukocytosis - WBC > 12,000 or leukopenia - WBC < 4,000 or > 10% bands
- Tachycardia > 90 beats per minute
- Tachypnea - RR > 20 breaths per minute or PaCO2 , 32mmHg
Source: Merck Manual 2013
Right Breast Cellulitis only , Without Systemic Illness
Other ( please specify)
Use of terms such as suspected, likely, concern for, or probable (associated with a specific diagnosis that is being evaluated, monitored, or treated as if it exists) are acceptable and can be coded in the inpatient setting, when documented at the
time of discharge.
Thank you,
Teetee Najera RN
CDI Specialist
[employer]
Please use your independent medical judgment in providing your response.
--- NOTE | 2025-03-28 12:29 | WOUNDNOTE ---
[facility] RN note: Patient admitted with right breast open wound.
See H&P for complete history.
PMH: Liver fibrosis, Myalgia paresthetica, Chest wall cellulitisFatty liver, GERD, Headache, Endometriosis, Hiatal hernia.
Wound Location and type/assessment: Patient admitted with right breast open wound. Per chart review, patient has Hidradenitis suppurativa and has been treated in the past. Wound is open, tender and draining serosanguineous drainage.
Appetite: Good
Pressure redistribution devices in place: Accumax, turns easily in bed and ambulates.
Plan: Patient can clean with Vashe, apply small amount of Honey Gel and cover with ABD. She will follow up with salesforce business analyst and breast surgeon. Patient understands instructions and can perform own wound care. Orders confirmed with Dr. Linn and RN
Celia given update.
Note to case management of equipment requested for discharge:
Recommend follow up at wound care center upon discharge.
--- NOTE | 2025-03-28 13:38 | W.PN.ID1 ---
Date of Service
Date of Service: March 28, 2025
Today's Communication
Transition to oral cephalexin.
Assessment / Plan
Right breast cellulitis with development of ulcer
- ?possible component of inflammatory process such as panniculitis?
Leukocytosis; improved
Transaminitis
GERD
Anxiety
Obesity (BMI = 51)
Recommendations:
Overall, patient appears improved.
Transition to oral cephalexin 500 mg p.o. QID x 7 days.
Patient will need outpatient follow-up with Breast Surgery.
Smoking cessation.
Chief Complaint
-: Cellulitis
Subjective / Review of Systems
Review of Systems: No Fever and No Chills
Vital Signs / Physical Exam
Vital Signs
Vital Signs
Temp Pulse Resp BP Pulse Ox
97.7 F 76 16 124/76 98
03/28/25 07:35 03/28/25 07:35 03/28/25 07:35 03/28/25 07:35 03/28/25 08:00
Physical Exam
Constitutional: No Acute Distress, Comfortable and Non-toxic
Eyes: Sclera Anicteric
Pulmonary: Non Labored
Skin: Rash (Still with rash underneath breasts. Right lateral breast wound dressed.)
Neurological: Awake and Alert
Psychological: Calm
Objective Data
Lab Data
Lab Results
03/28/25 06:29
03/28/25 06:29
Estimated Creat Clear > 125 ml/min 03/28/25 06:29
Total Bilirubin 0.7 mg/dl (0.2-1.3) 03/28/25 06:29
AST 51 U/L (14-36) H 03/28/25 06:29
ALT 79 U/L (0-35) H 03/28/25 06:29
Alkaline Phosphatase 79 U/L (38-126) 03/28/25 06:29
Most recent labs reviewed.
Micro Results:
03/26/25 19:10 Wound Culture - Preliminary
Abscess No growth
Gram Stain - Preliminary
03/27/25 05:20 MRSA Screen - Final
Nose No Methicillin Resistant Staphylococcus aureus isolated.
03/26/25 19:11 Blood Culture - Preliminary
Blood/Venous No Growth in 24 hours- Final report to follow
03/26/25 19:29 Blood Culture - Preliminary
Blood/Venous No Growth in 24 hours- Final report to follow
Imaging:
03/27/2025 Ultrasound right breast: ultrasound of the right breast demonstrates marked skin thickening at the 9 o'clock position where an ulcer is seen. Fluid/ulcer in the dermal layer is identified. There is mild cellulitis just below the dermal
layer. No abscess collection noted.
Care Review
Plan reviewed with: Physician (Hospitalist)
--- NOTE | 2025-03-28 14:57 | W.DCSUMMARY ---
Discharge Summary
Discharge Data
Date of Admission: 03/26/25
Date of Discharge: 03/28/25
-
Pending Results: No
Hospital Course
Primary diagnoses:
Sepsis due to right breast cellulitis
Secondary diagnoses:
Chronic transaminitis/fatty liver
Anxiety
Morbid obesity due to excess calories, BMI 52.1
Gastroesophageal reflux disease
Tobacco abuse disorder
Consultants:
Infectious disease
Breast surgery
Imaging:
CT chest: No significant acute abnormality identified in the chest, as described above. Interval resolution of previously seen midline anterior chest wall subcutaneous edema/emphysema and inflammatory change. No overt CT evidence for soft tissue
inflammation or fluid collections throughout the subcutaneous and partially visualized breast soft tissues.
R breast U/S: There is no abscess collection. There is skin thickening and ulceration with mild cellulitis subdermal.
Hospital course: 34-year-old female presented with a chief complaints of right breast wound as outlined in the H&P done on admission. Patient had a leukocytosis which resolved. She was placed on broad-spectrum antibiotics with IV vancomycin and
Zosyn which was narrowed to Ancef as per infectious disease. Imaging above. All culture data was negative. The patient was cleared for discharge by infectious disease on 7 further days of Keflex.
Discharge Plan
-
Patient Disposition: Home (Routine Discharge)
Discharge Diagnosis/Procedures: Sepsis due to right breast cellulitis
Condition: Good
Diet: Regular
Activity: As tolerated
Driving Restrictions: As prior to admission
Activity Restrictions/Additional Instructions:
Wound Care Instructions Clean with Vashe moistened gauze for 5 minutes, apply thin layer of honey gel to open areas and cover with ABD, secure with paper tape. Patient may perform her own wound care daily and PRN.
Referrals:
Stevenson Shearer MD [Family Provider, Internal Medicine] - in less than 1 week
Prescriptions:
New
cephalexin 500 mg Capsule
500 mg PO QID Qty: 28 0RF
oxycodone-acetaminophen [Percocet] 5-325 mg tablet
1 tab PO Q8H PRN (Reason: Pain) Qty: 6 0RF
Continued
famotidine 40 mg Tablet
40 mg PO HS
omeprazole 40 mg Capsule,Delayed Release(Dr/Ec)
40 mg PO DAILY
alprazolam 0.25 mg Tablet
0.25 mg PO DAILYPRN PRN (Reason: anxiety)
naproxen sodium [Aleve] 220 mg Tablet
440 mg PO BIDPRN PRN (Reason: mild pain)
Discharge Orders:
Discharge Patient (As Directed); Ordered 03/28/25
Ordered By: Elijah Linn
Discharge Date and Time
Print Language: CITIZEN OF [place]
[2025-03-28 15:10] VITALS: BP 127/83
--- NOTE | 2025-03-28 15:54 | WOUNDNOTE ---
RIGHT BREAST WOUND
--- NOTE | 2025-03-28 15:58 | CM ---
MD entered order for discharge.
Spoke with patient in room.
She agreed with discharge.
Ghislaine her mom will drive her home.
Pt requested work note from to 04/01/25 . MD notified of requested.
PLAN Home no needs
== END 2025-03-28 16:02 | disposition home or self-care (01) | DRG 872 ==
LOC: 4 EAST ACU 21:12
PROVIDERS: Emergency Medicine; Registered Nurse; ADMITTING PHYSICIAN Internal Medicine; ATTENDING PHYSICIAN Internal Medicine; CONSULT PHYSICIAN Surgery; EMERGENCY PHYSICIAN Emergency Medicine; FAMILY PHYSICIAN Internal Medicine; OTHER PHYSICIAN Internal Medicine Infectious Disease
DX: A41.9 Sepsis, unspecified organism (principal); Z68.43 Body mass index [BMI] 50.0-59.9, adult; N61.0 Mastitis without abscess; N60.01 Solitary cyst of right breast; F41.9 Anxiety disorder, unspecified; K21.9 Gastro-esophageal reflux disease without esophagitis; E66.01 Morbid (severe) obesity due to excess calories; M79.3 Panniculitis, unspecified; L73.2 Hidradenitis suppurativa; N80.9 Endometriosis, unspecified; G43.909 Migraine, unspecified, not intractable, without status migrainosus; M54.30 Sciatica, unspecified side; D72.829 Elevated white blood cell count, unspecified; J45.909 Unspecified asthma, uncomplicated; K74.00 Hepatic fibrosis, unspecified; K76.0 Fatty (change of) liver, not elsewhere classified; K44.9 Diaphragmatic hernia without obstruction or gangrene; F17.200 Nicotine dependence, unspecified, uncomplicated; Z60.2 Problems related to living alone; Z88.1 Allergy status to other antibiotic agents
CPT/HCPCS: 76642; 80053; 84703; 85025; 85027; 87040; 87070; 87205; 96361; 96365; 96375; 99284